=== PATIENT | female | born 1995 ===

== ENCOUNTER → 2020-03-07 | Outpatient (CLI) | payer OTHER | END | disposition home or self-care (01) | LOC: PRENATAL 14:52 | PROVIDERS: ATTEND Obstetrics & Gynecology Maternal & Fetal Medicine | DX: O35.0XX1 Maternal care for (suspected) central nervous system malformation in fetus, fetus 1 (principal); O35.3XX1 Maternal care for (suspected) damage to fetus from viral disease in mother, fetus 1; O98.513 Other viral diseases complicating pregnancy, third trimester; Z36.89 Encounter for other specified antenatal screening; Z3A.31 31 weeks gestation of pregnancy ==

== ENCOUNTER 2020-04-21 14:00 | Inpatient (IN) | payer OTHER ==
[~2020-04-21] VITALS: Ht 147.3 cm; Wt 2.7 kg
[2020-05-02] MEDS ORDERED: PRENATAL TABLE1 EAC1 PO (08:11)
[2020-05-02] MEDS ORDERED: FOLIC ACID0.8 M1 PO (08:12)
== END 2020-05-05 11:45 | disposition home or self-care (01) | DRG 788 ==
LOC: LDR 05-02 06:28 → OB/GYN 05-02 06:28
PROVIDERS: ADMIT Obstetrics & Gynecology; ATTEND Obstetrics & Gynecology
PROC: 10D00Z1 Extraction of Products of Conception, Low, Open Approach (ICD-10-PCS; principal; 2020-05-03)
PROC: 3E033VJ Introduction of Other Hormone into Peripheral Vein, Percutaneous Approach (ICD-10-PCS; 2020-05-03)
PROC: 4A1HXFZ Monitoring of Products of Conception, Cardiac Rhythm, External Approach (ICD-10-PCS; 2020-05-03)
DX: O62.1 Secondary uterine inertia (principal); Z3A.39 39 weeks gestation of pregnancy; Z37.0 Single live birth; Z20.828 Contact with and (suspected) exposure to other viral communicable diseases

== ENCOUNTER 2021-09-27 03:12 | Outpatient (CLI) | payer OTHER ==
[~2021-09-27 03:12] MED LIST: FOLIC ACID0.8 M1 PO; PRENATAL TABLE1 EAC1 PO
== END 2021-09-27 09:47 | disposition home or self-care (01) ==
LOC: OBS/DEL 03:12
PROVIDERS: ATTEND Obstetrics & Gynecology
DX: O23.43 Unspecified infection of urinary tract in pregnancy, third trimester (principal); O47.03 False labor before 37 completed weeks of gestation, third trimester; N39.0 Urinary tract infection, site not specified; Z3A.32 32 weeks gestation of pregnancy; Z20.822 Contact with and (suspected) exposure to COVID-19; Z88.8 Allergy status to other drugs, medicaments and biological substances; Z91.013 Allergy to seafood

== ENCOUNTER 2021-11-06 08:15 | Inpatient (IN) | payer OTHER ==
[~2021-11-06] VITALS: Ht 149.9 cm; Wt 2.7 kg
== END 2021-11-14 13:26 | disposition home or self-care (01) | DRG 785 ==
LOC: O/R 11-11 03:18 → OB/GYN 11-11 03:18
PROVIDERS: ADMIT Obstetrics & Gynecology; ATTEND Obstetrics & Gynecology
PROC: 0UB70ZZ Excision of Bilateral Fallopian Tubes, Open Approach (ICD-10-PCS; 2021-11-11)
PROC: 4A1HXCZ Monitoring of Products of Conception, Cardiac Rate, External Approach (ICD-10-PCS; 2021-11-11)
PROC: 10D00Z1 Extraction of Products of Conception, Low, Open Approach (ICD-10-PCS; principal; 2021-11-11 07:00)
DX: O34.211 Maternal care for low transverse scar from previous cesarean delivery (principal); Z30.2 Encounter for sterilization; Z3A.39 39 weeks gestation of pregnancy; Z37.0 Single live birth; Z20.822 Contact with and (suspected) exposure to COVID-19